=== PATIENT | male | born 1970 | race Caucasian/White ===

== ENCOUNTER → 2019-11-12 | Outpatient (CLI) | payer OTHER ==
[~2019-11-12] MED LIST: METHACHOLINE KIT (J7674) INH ONE
--- NOTE | 2019-11-12 09:43 | PFTRPT ---
Height: 71.00 Inches Weight: 220.00 Lbs BSA: 2.20 Diagnosis: R06.02 DATE OF PROCEDURE: 11/12/2019 ORDERED BY: Manuel Pal MD INTERPRETATION: Study of excellent technical quality. Under protocol, methacholine was administered. Even after a maximal dose of 25 mg or 188.875 CDUs, no provocation dose ever achieved. IMPRESSION: Negative methacholine challenge study. MTDD
== END ==
LOC: M CARPUL 08:32
PROVIDERS: ATTEND Internal Medicine Pulmonary Disease
DX: R06.02 Shortness of breath (principal)
CPT/HCPCS: 94070; J7674

== ENCOUNTER → 2019-11-27 | Outpatient (CLI) | payer OTHER ==
--- NOTE | 2019-11-28 09:39 | REP ---
ELBOW: REASON: Pain, no trauma. PRIORS: None. FINDINGS: There is no acute fracture, dislocation, subluxation, or joint effusion. There is a calcification arising from the olecranon process extending superiorly toward the insertion of the triceps tendon. This could be secondary to an enthesopathy or possibly secondary to chronic calcific olecranon bursitis. Correlate clinically. Electronically Signed by Keshav Orellana DO 11/29/2019 08:29 A
== END ==
LOC: M RAD 12:17
PROVIDERS: ATTEND Physician Assistant
DX: M25.522 Pain in left elbow (principal)

== ENCOUNTER → 2021-03-06 | Outpatient (REF) | payer OTHER | LOC: M LAB REF 14:10 | PROVIDERS: ATTEND Physician Assistant | DX: L82.1 Other seborrheic keratosis (principal) ==